=== PATIENT | female | born 1990 | race American Indian/Alaskan Native ===

== ENCOUNTER 2018-04-07 17:41 | Emergency (ER) | payer SELFPAY ==
[2018-04-07] MEDS ORDERED: TORADOL ONE (21:06)
[2018-04-07] MEDS ORDERED: ZOFRAN ONE (21:07)
[2018-04-07] MEDS ORDERED: PERCOCET 5/325 ONE (21:07)
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
[2018-04-07] MEDS ORDERED: ZOFRAN IV ONE (21:08)
[2018-04-07] MEDS ORDERED: MORPHINE IM ONE (21:08)
[2018-04-07] MEDS ORDERED: TORADOL IV ONE (21:08)
[2018-04-07] MEDS ORDERED: BOOSTRIX IM ONE (21:21)
[2018-04-07] MEDS ORDERED: MORPHINE IV ONE (21:22)
[2018-04-07 22:11] LABS: Eosinophils # (Auto) 0.1 K/mm3 (0.0-0.4); Eosinophils % (Auto) 1.8 % (0.0-4.3); Hematocrit 37.3 % (30.3-42.9); Hemoglobin 12.6 gm/dl (10.1-14.3); Lymphocytes # (Auto) 1.9 K/mm3 (1.2-5.4); Lymphocytes % (Auto) 39.5 % (13.4-35.0); Mean Corpuscular HGB Conc 34 % (30-34); Mean Corpuscular Hemoglobin 30 pg (28-32); Mean Corpuscular Volume 90 fl (79-97); Monocytes # (Auto) 0.5 K/mm3 (0.0-0.8); Monocytes % (Auto) 11.3 % (0.0-7.3); Platelet Count 222 K/mm3 (140-440); Red Blood Count 4.14 M/mm3 (3.65-5.03); Red Cell Distribution Width 15.3 % (13.2-15.2)
[2018-04-07 22:14] LABS: Bilirubin,Urine NEG (Negative); Blood,Urine NEG (Negative); Color,Urine Yellow (Yellow); Mucus,Urine FEW /HPF; Protein,Urine <15 mg/dL mg/dL (Negative); Urobilinogen,Urine < 2.0 mg/dL (<2.0)
[2018-04-07 22:15] LABS: HCG Qualitative,Urine Negative (Negative)
[2018-04-07 22:19] LABS: INR 0.96 (0.87-1.13); Partial Thromboplastin Time 28.2 Sec. (24.2-36.6)
[2018-04-07 22:20] LABS: Amphetamine Screen,Urine PRESUMPTIVE NEGATIVE; Benzodiazepines Screen,Urine PRESUMPTIVE NEGATIVE; Cocaine Screen,Urine PRESUMPTIVE NEGATIVE; Methadone Screen,Urine PRESUMPTIVE NEGATIVE; Opiate Screen,Urine PRESUMPTIVE NEGATIVE
[2018-04-07 22:29] LABS: Alanine Aminotransferase 10 units/L (7-56); Albumin 4.1 g/dL (3.9-5); BUN/Creatinine Ratio 20; Blood Urea Nitrogen 12 mg/dL (7-17); Calcium 8.8 mg/dL (8.4-10.2); Hemolysis Index 9
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
[2018-04-07 22:33] LABS: Cannabinoid Screen,Urine PRESUMPTIVE POSITIVE
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
[2018-04-07] MEDS ORDERED: PERCOCET 5/325 PO ONE (23:34)
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
[2018-04-08] MEDS ORDERED: BENADRYL ONE (01:11)
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
[2018-04-08] MEDS ORDERED: BENADRYL IV ONE (01:16)
[2018-04-08 01:37] VITALS: BP 123/89
== END 2018-04-08 02:05 | disposition home or self-care (01) ==
LOC: ED 17:41
DX: S16.1XXA Strain of muscle, fascia and tendon at neck level, initial encounter (principal); M54.6 Pain in thoracic spine; M54.5 Low back pain; J39.2 Other diseases of pharynx; S50.12XA Contusion of left forearm, initial encounter; S50.11XA Contusion of right forearm, initial encounter; V49.9XXA Car occupant (driver) (passenger) injured in unspecified traffic accident, initial encounter; Y93.89 Activity, other specified; Y92.89 Other specified places as the place of occurrence of the external cause; Y99.8 Other external cause status
CPT/HCPCS: 36415; 70450; 70486; 71275; 72125; 73060; 73090; 73552; 74177; 80053; 80307; 81001; 81025; 82550; 84484; 85025; 85610; 85730; 86850; 86900; 86901; 87086; 96374; 96375; 99284; J1200; J1885; J2270; J2405; Q9967

== ENCOUNTER 2018-06-30 10:58 | Emergency (ER) | payer SELFPAY ==
[2018-06-30 12:08] VITALS: BP 142/91
[2018-06-30] MEDS ORDERED: NACL 0.9% 1000 ML 1,000 ML IV ONE (13:20)
[2018-06-30 13:53] LABS: Basophils # (Auto) 0.1 K/mm3 (0.0-0.1); Basophils % (Auto) 1.2 % (0.0-1.8); Eosinophils % (Auto) 0.9 % (0.0-4.3); Hemoglobin 12.7 gm/dl (10.1-14.3); Lymphocytes # (Auto) 1.5 K/mm3 (1.2-5.4); Lymphocytes % (Auto) 33.1 % (13.4-35.0); Mean Corpuscular HGB Conc 33 % (30-34); Mean Corpuscular Hemoglobin 30 pg (28-32); Mean Corpuscular Volume 91 fl (79-97); Monocytes # (Auto) 0.4 K/mm3 (0.0-0.8); Platelet Count 223 K/mm3 (140-440); Red Blood Count 4.27 M/mm3 (3.65-5.03); Red Cell Distribution Width 14.9 % (13.2-15.2)
[2018-06-30 13:59] LABS: Alanine Aminotransferase 8 units/L (7-56); Albumin 4.5 g/dL (3.9-5); BUN/Creatinine Ratio 16; Blood Urea Nitrogen 8 mg/dL (7-17); Calcium 9.3 mg/dL (8.4-10.2); Hemolysis Index 4; Lipase 24 units/L (13-60)
[2018-06-30 14:54] LABS: Bacteria,Urine 1+ /HPF (Negative); Bilirubin,Urine NEG (Negative); Blood,Urine NEG (Negative); Color,Urine Yellow (Yellow); Mucus,Urine FEW /HPF; Protein,Urine <15 mg/dL mg/dL (Negative); Urobilinogen,Urine < 2.0 mg/dL (<2.0)
--- NOTE | 2018-06-30 14:56 | Emergency Department Report ---
ED GI Bleed HPI - General Chief complaint: GI Bleed Stated complaint: STOMACH PAIN/RECTAL BLEEDING Time Seen by Provider: 06/30/18 13:19 Source: patient Mode of arrival: Ambulatory Limitations: No Limitations - History of Present Illness Initial comments: This is a 28-year-old female nontoxic, well nourished in appearance, no acute signs of distress presents to the ED with c/o of rectal bleed 1 day. Patient stated that last night she had 4 alcoholic drinks that consist of tequila and had rectal bleeding. Patient denies any abdominal or pelvic pain. Patient stated had similar episode last year and was diagnosed with hemorrhoids. Patient stated symptoms has resolved since last year but reoccurred. Patient denies chest pain, short of breath, fever, chills, headache, stiff neck, numbness or tingling. Patient denies any diarrhea. Patient did stated she has constipation issues. Patient denies any vaginal bleeding or discharge. Patient denies any recent travels. Patient stated allergies to acetaminophen. Denies significant past medical history. MD complaint: blood on toilet paper -: days(s) (1) Radiation: none Severity scale (0 -10): 0 Quality: painless Consistency: intermittent, now resolved Improves with: none Worsens with: none Context: hemorrhoids Associated Symptoms: denies: abdominal pain, nausea, vomiting, epistaxis, fever/ chills, headaches, loss of appetite, malaise, easy bruising, rash, other bleeding, shortness of breath, syncope, weakness Treatments Prior to Arrival: none - Related Data Previous Rx's Medication Instructions Recorded Last Taken Type Cephalexin [Keflex] 500 mg PO Q12HR 5 Days #10 capsule 04/08/18 Unknown Rx Ibuprofen [Motrin] 600 mg PO Q8H PRN #15 tablet 04/08/18 Unknown Rx Oxycodone HCl [Roxicodone] 5 mg PO Q6H PRN #12 tablet 04/08/18 Unknown Rx Promethazine [Phenergan TAB] 25 mg PO Q8HR PRN #12 tab 04/08/18 Unknown Rx Docusate Sodium [Colace] 100 mg PO BID PRN #60 capsule 06/30/18 Unknown Rx Hydrocortisone 1% [Hydrocortisone 1 applicatio TP TID #1 tube 06/30/18 Unknown Rx 1% CREAM] Allergies Allergy/AdvReac Type Severity Reaction Status Date / Time acetaminophen [From Tylenol] Allergy Swelling Verified 04/07/18 18:25 ED Review of Systems ROS: Stated complaint: STOMACH PAIN/RECTAL BLEEDING Other details as noted in HPI Constitutional: denies: chills, fever Eyes: denies: eye pain, eye discharge, vision change ENT: denies: ear pain, throat pain Respiratory: denies: cough, shortness of breath, wheezing Cardiovascular: denies: chest pain, palpitations Endocrine: no symptoms reported Gastrointestinal: denies: abdominal pain, nausea, diarrhea Genitourinary: denies: urgency, dysuria, discharge Musculoskeletal: denies: back pain, joint swelling, arthralgia Skin: denies: rash, lesions Neurological: denies: headache, weakness, paresthesias Psychiatric: denies: anxiety, depression Hematological/Lymphatic: denies: easy bleeding, easy bruising ED Past Medical Hx - Past Medical History Previous Medical History?: Yes Additional medical history: HEART MURMUR - Surgical History Past Surgical History?: No Additional Surgical History: single - Social History Smoking Status: Never Smoker Substance Use Type: Alcohol, Marijuana - Medications Home Medications: Home Medications Medication Instructions Recorded Confirmed Last Taken Type Cephalexin [Keflex] 500 mg PO Q12HR 5 Days #10 capsule 04/08/18 Unknown Rx Ibuprofen [Motrin] 600 mg PO Q8H PRN #15 tablet 04/08/18 Unknown Rx Oxycodone HCl [Roxicodone] 5 mg PO Q6H PRN #12 tablet 04/08/18 Unknown Rx Promethazine [Phenergan TAB] 25 mg PO Q8HR PRN #12 tab 04/08/18 Unknown Rx Docusate Sodium [Colace] 100 mg PO BID PRN #60 capsule 06/30/18 Unknown Rx Hydrocortisone 1% [Hydrocortisone 1 applicatio TP TID #1 tube 06/30/18 Unknown Rx 1% CREAM] ED Physical Exam - General Limitations: No Limitations General appearance: alert, in no apparent distress - Head Head exam: Present: atraumatic, normocephalic - Eye Eye exam: Present: normal appearance Pupils: Present: normal accommodation - ENT ENT exam: Present: normal exam, mucous membranes moist - Neck Neck exam: Present: normal inspection, full ROM - Respiratory Respiratory exam: Present: normal lung sounds bilaterally. Absent: respiratory distress, wheezes, rales, rhonchi, stridor, chest wall tenderness, accessory muscle use, decreased breath sounds, prolonged expiratory - Cardiovascular Cardiovascular Exam: Present: regular rate, normal rhythm, normal heart sounds. Absent: bradycardia, tachycardia, irregular rhythm, systolic murmur, diastolic murmur, rubs, gallop - GI/Abdominal GI/Abdominal exam: Present: soft, normal bowel sounds. 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 Absent: normal rectal tone, decreased rectal tone, heme (-) stool, black stool, bloody stool, fecal impaction, mass, tenderness - Extremities Exam Extremities exam: Present: normal inspection, full ROM, normal capillary refill. Absent: tenderness - Back Exam Back exam: Present: normal inspection, full ROM. Absent: tenderness, CVA tenderness (R), CVA tenderness (L), muscle spasm, paraspinal tenderness, vertebral tenderness, rash noted - Neurological Exam Neurological exam: Present: alert, oriented X3, normal gait - Psychiatric Psychiatric exam: Present: normal affect, normal mood - Skin Skin exam: Present: warm, dry, intact, normal color. Absent: rash ED Course Vital Signs 06/30/18 12:04 Temperature 97.8 F Pulse Rate 89 Respiratory 16 Rate Blood Pressure 142/91 O2 Sat by Pulse 100 Oximetry - Reevaluation(s) Reevaluation #1: 06/30/18 15:13 Patient is speaking in full sentences with no signs of distress noted. ED Medical Decision Making - Lab Data Result diagrams: 06/30/18 13:27 06/30/18 13:27 - Medical Decision Making This is a 28-year-old female that presents with external hemorrhoids. Patient is stable and was examined by me. Labs unremarkable. Hemorrhoids are reducible. There was a positive hemeoccult testing. CT of abdomen obtained with contrast and dictated by the radiologist. Patient notified of the CT report with no question about the patient. Patient was hydrated with 1 L normal saline IV. Patient was educated on sitz bath. Patient was referred to Follow-up with a primary care doctor in 3-5 days or if symptoms worsen and continue return to emergency room as soon as possible. At time of discharge, the patient does not seem toxic or ill in appearance. No acute signs of distress noted. Patient agrees to discharge treatment plan of care. No further questions noted by the patient. Critical care attestation.: If time is entered above; I have spent that time in minutes in the direct care of this critically ill patient, excluding procedure time. ED Disposition Clinical Impression: Hemorrhoids Qualifiers: Hemorrhoid type: unspecified Qualified Code(s): K64.9 - Unspecified hemorrhoids Disposition: TO HOME OR SELFCARE Is pt being admited?: No Does the pt Need Aspirin: No Condition: Stable Instructions: Hemorrhoids (ED), Sitz Bath (GEN) Additional Instructions: Follow-up with a primary care doctor in 3-5 days or if symptoms worsen and continue return to emergency room as soon as possible. Prescriptions: Docusate Sodium [Colace] 100 mg PO BID PRN #60 capsule PRN Reason: constipation Hydrocortisone 1% [Hydrocortisone 1% CREAM] 1 applicatio TP TID #1 tube Referrals: PRIMARY CAREMD [Primary Care Provider] - 3-5 Days SIMON STYLES MD [Staff Physician] - 3-5 Days [facility] [Outside] - 3-5 Days [facility] [Outside] - 3-5 Days Forms: Accompanied Note, Work/School Release Form(ED)
--- NOTE | 2018-06-30 16:55 | Cat Scan Report ---
FINAL REPORT PROCEDURE: CT ABDOMEN PELVIS W CON TECHNIQUE: Computerized axial tomography of the abdomen and pelvis was performed during the IV injection of iodinated nonionic contrast. HISTORY: GI bleed COMPARISON: Prior CT scan abdomen and pelvis 04/07/2018 FINDINGS: Lower Lung gardner: No focal abnormality seen. Upper Abdomen: The liver, the adrenal glands, the pancreas, the spleen and gallbladder show no focal abnormalities. Kidneys, Ureters and Urinary bladder: Urinary bladder is only partially filled and difficult to characterize. No gross abnormality is seen. Kidneys and ureters are also unremarkable. Retroperitoneum: Abdominal aorta and iliac arteries are unremarkable. Nonspecific subcentimeter lymph nodes are seen in the retroperitoneum. No pathologically enlarged lymph nodes are identified. Bowel: No focal bowel loop abnormalities are seen. There is no evidence of bowel obstruction. No ascites or free intraperitoneal gas is seen. The appendix is not visualized. Reproductive organs: A nodular density is seen in the anterior myometrium seen best on the sagittal views measuring 4.2 x 4.1 centimeter. This appears represent a uterine fibroid in was present on the prior study. Uterus is otherwise unremarkable. Thick-walled cystic change again visualized in the left adnexa. This appear to be present on the prior study. This has not changed significantly continue to measure approximately 2.1 centimeters. Small amount of nonspecific free fluid is present in the cul-de-sac. Other: No acute bony abnormalities are identified. IMPRESSION: No focal bowel loop abnormalities are identified. If clinically indicated nuclear medicine bleeding scan could be obtained for further evaluation and to locate the site of intestinal bleeding. Moderate-sized uterine fibroid again visualized. Persistent 2 centimeter thick-walled cyst left adnexa. This was seen on the prior study suggesting persistent or recurrent cystic abnormality. Consider pelvic ultrasound for further characterization. No other abnormalities are seen.
== END 2018-06-30 17:28 | disposition home or self-care (01) ==
LOC: ED 10:58
DX: K64.9 Unspecified hemorrhoids (principal); F12.10 Cannabis abuse, uncomplicated; Z88.6 Allergy status to analgesic agent
CPT/HCPCS: 36415; 74177; 80053; 81001; 83690; 84703; 85025; 96360; 99284; J7030; Q9967